=== PATIENT | female | born 1995 | race American Indian/Alaskan Native ===

== ENCOUNTER 2017-01-14 08:53 | Outpatient (CLI) | payer OTHER ==
--- NOTE | 2017-01-14 10:59 | Ultrasound Report ---
RIGHT BREAST ULTRASOUND: 01/14/17 08:53:00 CLINICAL: 21 year-old with focal breast pain. COMPARISON: None. FINDINGS: Ultrasound of the right breast was performed from 6 o'clock to 9 o'clock in the area where she describes pain. Normal fibroglandular structures. No mass, cyst or shadowing. IMPRESSION: Negative right breast ultrasound. BI-RADS 1 - - Negative RECOMMENDATION: Clinical followup and routine mammographic screening based on ACS guidelines.
== END 2017-01-14 08:54 | disposition home or self-care (01) ==
LOC: SPVWC 08:53
PROVIDERS: ATTEND Nurse Practitioner Family
DX: N64.4 Mastodynia (principal)